=== PATIENT | female | born 1970 | race Two or more races ===

== ENCOUNTER 2024-11-27 12:41 | Inpatient (IN) | payer OTHER ==
[~2024-11-27] VITALS: Ht 170.2 cm; Wt 90.9 kg
--- NOTE | 2024-11-27 12:54 | ED.PDOC ---
History of Present Illness HPI Comments 51-year-old female with PMHx PE on Eliquis brought in by EMS presents with a chief complaint of palpitations and anxiety-like symptoms x 20 minutes prior to arrival. Patient was at [facility] visiting a friend when she states that she began to have sudden onset of dry mouth, numbness and tingling to all extremities, and hyperventilation. Patient states that those symptoms have subsided and now all she is feeling is palpitation-like feeling in her chest. Patient is unsure if she has a history of anxiety. Patient is on Eliquis for her PE. 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 Family History Family History: Reviewed,noncontributory to illness Social History Smoker: Non-Smoker Alcohol: Denies ETOH Use Drugs: Denies Drug Use Lives In: Home Constitutional: denies: chills, diaphoresis, fatigue, fever, malaise, sweats, weakness, others EENTM: denies: blurred vision, double vision, ear bleeding, ear discharge, ear drainage, ear pain, ear ringing, eye pain, eye redness, hearing loss, mouth pain, mouth swelling, nasal discharge, nose bleeding, nose congestion, nose pain, photophobia, tearing, throat pain, throat swelling, voice changes, others Respiratory: reports: others (HYPERVENTILATION); denies: cough, hemoptysis, orthopnea, SOB at rest, shortness of breath, SOB with excertion, stridor, wheezing Cardiovascular: reports: palpitations; denies: chest pain, dizzy spells, diaphoresis, Dyspnea on exertion, edema, irregular heart beat, left arm pain, lightheadedness, PND, syncope, others Gastrointestinal: denies: abdomen distended, abdominal pain, blood streaked bowels, constipated, diarrhea, dysphagia, difficulty swallowing, hematemesis, melena, nausea, poor appetite, poor fluid intake, rectal bleeding, rectal pain, vomiting, others Genitourinary: denies: abnormal vagina bleeding, burning, dyspareunia, dysuria, flank pain, frequency, hematuria, incontinence, pain, , vagina discharge, urgency, others Neurological: denies: dizziness, fainting, headache, left sided numbness, left sided weakness, numbness, paresthesia, pre-existing deficit, right sided numbness, right sided weakness, seizure, speech problems, tingling, tremors, weakness, others Musculoskeletal: denies: back pain, gout, joint pain, joint swelling, muscle pain, muscle stiffness, neck pain, others Integumetry: denies: bruises, change in color, change in hair/nails, dryness, laceration, lesions, lumps, rash, wounds, others Allergic/Immunocompromised: denies: Difficulty Healing, Frequent Infections, Hives, Itching, others Hematologic/Lymphatic: denies: anemia, blood clots, easy bleeding, easy bruising, swollen glands, others Endocrine: denies: excessive hunger, excessive sweating, excessive thirst, excessive urination, flushing, intolerance to cold, intolerance to heat, unexplained weight gain, unexplained weight loss, others Psychiatric: reports: anxiety; denies: bipolar disorder, depression, hopeless, panic disorder, schizophrenia, sleepless, suicidal, others All Other Systems: Reviewed and Negative Physical Exam General Appearance: Moderate Distress, Normal HEENT: Normal ENT Inspection, Pharynx Normal, TMs Normal Neck: Full Range of Motion, Non-Tender, Normal, Normal Inspection Respiratory: Chest Non-Tender, Lungs Clear, No Accessory Muscle Use, No Respiratory Distress, Normal Breath Sounds Cardiovascular: No Edema, No JVD, No Murmur, No Gallop, Normal Peripheral Pulses, Regular Rate/Rhythm Breast Exam: Deferred Gastrointestinal: No Organomegaly, Non Tender, No Pulsatile Mass, Normal Bowel Sounds, Soft Genitalia: Deferred Pelvic: Deferred Rectal: Deferred Extremities: No calf tenderness, Normal capillary refill, Normal inspection, Normal range of motion, Non-tender, No pedal edema Musculoskeletal : Apperance: Normal Neurologic: Alert, attendance officer II-XII nml as Tested, No Motor Deficits, Normal Affect, Normal Mood, No Sensory Deficits Cerebellar Function: NOT DONE Reflexes: NOT DONE Skin: Dry, Normal Color, Warm Peripheral Pulses: 3+ Radial (R), 3+ Radial (L) Lymphatic: No Adenopathy Was a procedure done? Was a procedure done?: No EKG EKG : Pulse Rate (adult): 79 Cardiac Rhythm: NSR Differential Dx Considerations may include: Anemia Electrolyte imbalance X-Ray, Labs, Meds, VS Vital Signs Date Time Temp Pulse Resp B/P (MAP) Pulse Ox O2 Delivery O2 Flow Rate FiO2 11/27/24 12:57 79 11/27/24 12:53 79 11/27/24 12:48 97.8 94 22 137/87 99 97.8 Lab Test 11/27/24 16:21 11/27/24 14:21 11/27/24 12:56 11/27/24 12:49 Range/Units Urine Color Colorless Yellow Urine Clarity Turbid H Clear Urine pH 7.5 5.0-9.0 Urine Specific [place] 1.007 1.001-1.035 Urine Protein Negative Negative Urine Ketones Negative Negative Urine Blood Normal Negative /uL Urine Nitrite Negative Negative Urine Bilirubin Negative Negative Urine Urobilinogen Normal Negative mg/dL Urine Leukocyte Esterase Negative Negative /uL Urine Glucose Normal Normal mg/dL Troponin I High Sensitivity < 3 L < 3 L </=34 ng/L White Blood Count 5.3 4.4-10.8 10^3/uL Red Blood Count 4.51 4.0-5.20 10^6/uL Hemoglobin 12.7 12.2-16.2 g/dL Hematocrit 38.6 36.0-46.0 % Mean Corpuscular Volume 85.6 80.0-100.0 fL Mean Corpuscular Hemoglobin 28.2 28.0-32.0 pg Mean Corpuscular Hemoglobin Concent 33.0 32.0-36.0 g/dL Red Cell Distribution Width 14.4 H 11.8-14.3 % Platelet Count 232 140-450 10^3/uL Mean Platelet Volume 8.2 6.9-10.8 fL Neutrophils (%) (Auto) 45.2 37.0-80.0 % Lymphocytes (%) (Auto) 44.9 10.0-50.0 % Monocytes (%) (Auto) 8.2 0.0-12.0 % Eosinophils (%) (Auto) 1.0 0.0-7.0 % Basophils (%) (Auto) 0.7 0.0-2.0 % Neutrophils # (Auto) 2.4 1.6-8.6 10 ^3/uL Lymphocytes # (Auto) 2.4 0.4-5.4 10 ^3/uL Monocytes # (Auto) 0.4 0-1.3 10 ^3/uL Eosinophils # (Auto) 0.1 0-0.8 10 ^3/uL Basophils # (Auto) 0 0-0.2 10 ^3/uL Nucleated Red Blood Cells 0.1 % Sodium Level 139 136-145 mmol/L Potassium Level 3.5 3.5-5.1 mmol/L Chloride Level 106 98-107 mmol/L Carbon Dioxide Level 20 20-31 mmol/L Anion Gap 13 5-15 Blood Urea Nitrogen 14 9-23 mg/dL Creatinine 1.14 H 0.550-1.02 mg/dL Glomerular Filtration Rate Calc 57 >90 mL/min BUN/Creatinine Ratio 12.3 10.0-20.0 Serum Glucose 197 H 74-106 mg/dL Calcium Level 9.2 8.7-10.4 mg/dL Urine Opiates Screen Pending Urine Fentanyl Screen Pending Urine Barbiturates Screen Pending Urine Phencyclidine Screen Pending Urine Amphetamines Screen Pending Urine Benzodiazepines Screen Pending Urine Cocaine Screen Pending Urine Cannabinoids Screen Pending Current Medications Medications (Trade) Dose Ordered Sig/Miriam Route Start Time Stop Time Status Last Admin Aspirin 325 mg ONCE ONCE PO 11/27/24 13:00 11/27/24 13:01 DC 11/27/24 14:05 Lorazepam (Ativan Inj) 1 mg ONCE ONCE IV 11/27/24 13:00 11/27/24 13:01 DC 11/27/24 14:05 Patient alert. Complaining of chest discomfort. Vitals stable. Answering questions. She is on Eliquis for possible clot. No leg swelling. EKG reviewed does not show any acute process. Explained to the patient. Continue monitoring. Time of 1ST Reevaluation: 13:16 Reevaluation 1ST: Unchanged Patient Education/Counseling: Diagnosis, Treatment, Need For Follow Up Family Education/Counseling: No Family Present SEPSIS Sepsis Screen Physician Orders Chest Portable (11/27/24 12:49) Vital Signs Date Time Temp Pulse Resp B/P (MAP) Pulse Ox O2 Delivery O2 Flow Rate FiO2 11/27/24 12:57 79 11/27/24 12:53 79 11/27/24 12:48 97.8 94 22 137/87 99 97.8 Laboratory Tests Test 11/27/24 12:56 White Blood Count 5.3 10^3/uL (4.4-10.8) Medications Medications Dose Ordered Sig/Miriam Route Start Time Stop Time Status Last Admin Dose Admin Aspirin 325 mg ONCE ONCE PO 11/27/24 13:00 11/27/24 13:01 DC 11/27/24 14:05 Lorazepam 1 mg ONCE ONCE IV 11/27/24 13:00 11/27/24 13:01 DC 11/27/24 14:05 Departure 1 Departure Time of Disposition: 12:57 Impression: Primary Impression: Chest pain of unknown etiology Disposition: ADMITTED INPATIENT Admit to: Med Surg Condition: Guarded Critical Care Note Critical Care Time?: No Stability Stability form required: No Heart Score Heart Score: Heart Score Response (Comments) Value History N/A 0 EKG N/A 0 Age N/A 0 Risk Factors N/A 0 Troponin N/A 0 Total 0 I personally scribed for AFTAB LIM MD ([email or web address]) on 11/27/24 at 12:53. Electronically submitted by Parrish Gonzales [email or web address]). AFTAB LIM MD Nov 27, 2024 12:53
--- NOTE | 2024-11-27 13:00 | ECG ---
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
[2024-11-27 13:06] LABS: Hematocrit 38.6 % (36.0-46.0); Hemoglobin 12.7 g/dL (12.2-16.2); Mean Corpuscular Hemoglobin 28.2 pg (28.0-32.0); Mean Corpuscular Volume 85.6 fL (80.0-100.0); Nucleated Red Blood Cells % 0.1 %
[2024-11-27 13:16] LABS: Chloride 106 mmol/L (98-107); Sodium 139 mmol/L (136-145)
[2024-11-27 13:17] LABS: Anion Gap 13 (5-15); Calcium 9.2 mg/dL (8.7-10.4); Carbon Dioxide 20 mmol/L (20-31)
[2024-11-27 13:22] LABS: BUN/Creatinine Ratio 12.3 (10.0-20.0); Blood Urea Nitrogen 14 mg/dL (9-23)
[2024-11-27 13:28] LABS: Glucose 197 mg/dL (74-106); Potassium 3.5 mmol/L (3.5-5.1)
--- NOTE | 2024-11-27 13:50 | DVH ---
INDICATION: sob TECHNIQUE: Frontal view of the chest. COMPARISON: None FINDINGS: . The heart and mediastinal contours are grossly unremarkable. There is no evidence of pleural disea se. The lungs are clear. The bony structures of the chest are intact without fracture. IMPRESSION: 1. No evidence of acute disease.
[2024-11-27] MEDS: LORazepam 2MG/ML-1ML VIAL IV ONE (14:05)
[2024-11-27] MEDS ORDERED: ACETAMINOPHEN 325 MG TAB PO PRN (17:00)
[2024-11-27] MEDS ORDERED: ALPRAZolam 0.5 MG TAB PO PRN (17:00)
[2024-11-27 17:04] LABS: Urine Protein, UAD Negative (Negative)
--- NOTE | 2024-11-27 17:09 | DVHHP2 ---
History of Present Illness Reason for Visit: Generalized weakness History of Present Illness This is a pleasant 51-year-old female with past medical history of PE on Eliquis brought in by EMS due to chief complaint of anxiety like symptoms associated with palpitation and shortness of breaths 20 minutes prior to arrival. The pa kortney states being diagnosed with PE about two years ago and had a follow-up imaging done which no longer having PE but continues to take Eliquis. The patient reports visiting a friend at [facility] when she suddenly having symptoms that started with dry mouth, numbness and tingling to all extremities and hyperventilation. The patient states that those symptoms have subsided and now all she is feeling is numbness to her fingers her legs along with her chest. The patient denies using illicit drugs, consumption of caffeinated/energy drinks and denies recent injury or trauma to chest. The patient is unsure if she has a history of anxiety, denies prior history of said symptoms. The patient and is concerned about her symptoms and would like to be further evaluated and treated. The patient will be admitted under hospitalist care to the medical-surgical unit. The patient denies fever, chills, dizziness, headache, abdominal pain, nausea, vomiting, diarrhea, constipation and other associated symptoms. The plan has been discussed with the patient and who was concerned in which all questions concerns have been addressed. Pulmonary: Pulmonary embolus Past Surgical History: None Family History: None Smoke: No ALCOHOL: none Drugs: None Lives: with Family Domestic Violence: Neg Review of Systems Constitutional: Yes: Weakness Respiratory: Shortness of breath Cardiovascular: Palpitations Musculoskeletal: other Neurological: Other (Anxiety) Other Numbness and tingling to upper and lower extremity Allergies: Coded Allergies: NO KNOWN ALLERGIES (Unverified , 11/27/24) Medications Current Medications Medications Dose Ordered Sig/Miriam Route Start Time Stop Time Status Last Admin Dose Admin Aspirin 81 mg DAILY PO 11/28/24 10:00 UNV Sodium Chloride 1,000 ml @ 100 mls/hr Q10H IV 11/27/24 17:00 UNV Acetaminophen 650 mg Q6HP PRN PO 11/27/24 17:00 UNV Exam Vital Signs Vital Signs Date Time Temp Pulse Resp B/P (MAP) Pulse Ox O2 Delivery O2 Flow Rate FiO2 11/27/24 12:57 79 11/27/24 12:48 97.8 22 137/87 99 97.8 General Appearance: Alert, Oriented X3, Cooperative, No acute distress HEENT: Atraumatic, PERRLA, Mucous membr. moist/pink Respiratory: Clear to auscultation, Normal air movement Cardiovascular: Normal S1, Normal S2, No murmurs Abdominal: Normal bowel sounds, Soft, No tenderness, No hepatospenomegaly, No masses Extremities: No clubbing, No cyanosis, No edema, Normal pulses, No tenderness/swelling Skin: No rashes, No breakdown Neuro: Normal gait, Normal speech, Strength at 5/5 X4 ext, Normal tone, Cranial nerves 3-12 NL Psych/Mental Status: Mental status NL, Mood NL Labs/Xrays Labs Test 11/27/24 16:21 11/27/24 14:21 11/27/24 12:56 Range/Units Troponin I High Sensitivity < 3 L </=34 ng/L White Blood Count 5.3 4.4-10.8 10^3/uL Red Blood Count 4.51 4.0-5.20 10^6/uL Hemoglobin 12.7 12.2-16.2 g/dL Hematocrit 38.6 36.0-46.0 % Mean Corpuscular Volume 85.6 80.0-100.0 fL Mean Corpuscular Hemoglobin 28.2 28.0-32.0 pg Mean Corpuscular Hemoglobin Concent 33.0 32.0-36.0 g/dL Red Cell Distribution Width 14.4 H 11.8-14.3 % Platelet Count 232 140-450 10^3/uL Mean Platelet Volume 8.2 6.9-10.8 fL Neutrophils (%) (Auto) 45.2 37.0-80.0 % Lymphocytes (%) (Auto) 44.9 10.0-50.0 % Monocytes (%) (Auto) 8.2 0.0-12.0 % Eosinophils (%) (Auto) 1.0 0.0-7.0 % Basophils (%) (Auto) 0.7 0.0-2.0 % Neutrophils # (Auto) 2.4 1.6-8.6 10 ^3/uL Lymphocytes # (Auto) 2.4 0.4-5.4 10 ^3/uL Monocytes # (Auto) 0.4 0-1.3 10 ^3/uL Eosinophils # (Auto) 0.1 0-0.8 10 ^3/uL Basophils # (Auto) 0 0-0.2 10 ^3/uL Nucleated Red Blood Cells 0.1 % Sodium Level 139 136-145 mmol/L Potassium Level 3.5 3.5-5.1 mmol/L Chloride Level 106 98-107 mmol/L Carbon Dioxide Level 20 20-31 mmol/L Anion Gap 13 5-15 Blood Urea Nitrogen 14 9-23 mg/dL Creatinine 1.14 H 0.550-1.02 mg/dL Glomerular Filtration Rate Calc 57 >90 mL/min BUN/Creatinine Ratio 12.3 10.0-20.0 Serum Glucose 197 H 74-106 mg/dL Calcium Level 9.2 8.7-10.4 mg/dL ORDERING PHYSICIAN: AFTAB LIM MD PROCEDURE(s): CXRP - CHEST PORTABLE REASON: sob ORDER NUMBER(s): [id number], ACCESSION NUMBER(s): [id number] INDICATION: sob TECHNIQUE: Frontal view of the chest. COMPARISON: None FINDINGS: . The heart and mediastinal contours are grossly unremarkable. There is no evidence of pleural disease. The lungs are clear. The bony structures of the chest are intact without fracture. IMPRESSION: 1. No evidence of acute disease. ATED BY: LAKEISHA ROOT MD DICTATED DATE/TIME: 11/27/241347 SIGNED BY: LAKEISHA ROOT MD SIGNED DATE/TIME: 11/27/241347 CC: SEPSIS Sepsis Screen Date sepsis recognized/suspect: Nov 27, 2024 Time Sepsis recognized/suspect: 1248 Recent Procedure: No On Antibiotic Therapy: No Respiratory Rate >20: No Heart Rate >90: Yes Temp<36 C (96.8 F) or >38.3 C: No SBP <90 or MAP <65 mmHG: No New Acute Mental Status Change: No Is the patient on CPAP, BIPAP,: No Physician Orders Chest Portable (11/27/24 12:49) Urinalysis W/Out Microscopic (11/27/24 16:21) Aspirin Tablet (11/28/24 10:00) Drug Screen (11/27/24 16:57) Admit (11/27/24 16:57) 2 Gm Sodium Diet (11/27/24 Dinner) 0.9% Ns 1000 Ml (11/27/24 17:00) Complete Blood Count (11/28/24 04:00) Comprehensive Metabolic Panel (11/28/24 04:00) Pt Request For Service (11/27/24 16:57) Echo 2d Mode Cardiac Dop (11/27/24 16:57) Carotid Duplx W Color Dop (11/27/24 16:57) Condition: Fair (11/27/24 16:57) Acetaminophen Tablet (Tylenol Tablet) (11/27/24 17:00) Bedrest With Bathroom Privileg (11/27/24 16:57) Vital Signs Date Time Temp Pulse Resp B/P (MAP) Pulse Ox O2 Delivery O2 Flow Rate FiO2 11/27/24 12:57 79 11/27/24 12:53 79 11/27/24 12:48 97.8 94 22 137/87 99 97.8 Laboratory Tests Test 11/27/24 12:56 White Blood Count 5.3 10^3/uL (4.4-10.8) Medications Medications Dose Ordered Sig/Miriam Route Start Time Stop Time Status Last Admin Dose Admin Aspirin 325 mg ONCE ONCE PO 11/27/24 13:00 11/27/24 13:01 DC 11/27/24 14:05 325 MG Lorazepam 1 mg ONCE ONCE IV 11/27/24 13:00 11/27/24 13:01 DC 11/27/24 14:05 1 MG Assessment/Plan Assessment/Plan Generalized weakness rule out TIA--patient brought in by EMS with chief complaint of anxiety like symptoms associated with palpitation, numbness and tingling to all extremities and dry mouth times 20 minutes prior to arrival Patient was visiting friend today when symptoms suddenly occurred No prior history of anxiety attack Denies illicit drug use, injury/trauma to chest, consumption of caffeinate d/energy drink Alert oriented, denies shortness of breath and chest pain during evaluation just numbness and tingling to upper and lower extremity Admit to med surge unit Reviewed CBC which is normal Reviewed BMP which is normal Cardiac enzyme negative x2 Urinalysis is negative Reviewed chest x-ray which is normal Magnesium level pending UDS pending Carotid Doppler pending Echocardiogram pending Xanax 0.5 mg b.i.d. if needed Consider transmission tester if further evaluation and recommendation are needed Consider neurologist if further evaluation and recommendation or needed History of PE Diagnosed two years ago recently cleared But remains taking Eliquis 5 mg b.i.d. Reconcile home medication Labs in a.m. DVT prophylaxis patient currently on Eliquis PUD prophylaxis not indicated no history of GERD Discussed plan of care with the patient and spouse in which all questions concerns have been addressed Plan discussed with: Patient, Spouse My Orders Orders - JENNIFER OTT Procedure Category Date Status Time Aspirin Tablet PHA 11/28/24 Transmitted 10:00 Drug Screen LAB 11/27/24 Transmitted 16:57 Admit ADMIT 11/27/24 Transmitted 16:57 2 Gm Sodium Diet DIET 11/27/24 Transmitted Dinner 0.9% Ns 1000 Ml PHA 11/27/24 Transmitted 17:00 Complete Blood Count LAB 11/28/24 Verified 04:00 Comprehensive LAB 11/28/24 Verified Metabolic Panel 04:00 Pt Request For Service PT 11/27/24 Transmitted 16:57 Echo 2d Mode Cardiac US 11/27/24 Transmitted DOP 16:57 Carotid Duplx W Color US 11/27/24 Transmitted DOP 16:57 Condition: Fair DONNA 11/27/24 Transmitted 16:57 Acetaminophen Tablet PHA 11/27/24 Transmitted (Tylenol Tablet) 17:00 Bedrest With Bathroom DONNA 11/27/24 Transmitted Privileg 16:57 Date of Service: Nov 27, 2024 Billing Provider: JENNIFER OTT Common Visit Codes: [id number] INP/OBS CARE (HIGH) JENNIFER OTT Nov 27, 2024 17:09
[2024-11-27 17:23] LABS: Amphetamine Screen, Urine Neg (NEGATIVE)
[2024-11-27 17:33] LABS: Barbiturate Scree,Urine Neg (NEGATIVE); Benzodiazephine Screen, Urine Neg (NEGATIVE); Cannabinoid Screen, Urine Neg (NEGATIVE); Cocaine Screen, Urine Neg (NEGATIVE); Opiate Scree,Urine Neg (NEGATIVE); Phencyclidine Screen, Urine Neg (NEGATIVE)
[2024-11-27] MEDS: SODIUM CHLORIDE 0.9% 1,000 ML IV SCH (17:58)
--- NOTE | 2024-11-27 18:02 | DVH ---
Carotid Duplex Date: 11/27/2024 05:40 PM Clinical History: Rule out TIA Comparison: None Technique: Duplex Doppler evaluation of the extracranial carotid and vertebral arteries including col or Doppler and spectral/pulsed waveform analysis was performed. Findings: RIGHT SIDE: The peak systolic velocities are 44 cm/s in the distal CCA and 75 cm/s in the proximal ICA.The ICA/CC A ratio is 1.7. The external carotid artery is patent with peak systolic velocity of 46 cm/s proximally. There is appropriate antegrade flow in the right vertebral artery. LEFT SIDE: The peak systolic velocities are 63 cm/s in the distal CCA and 72 cm/s in the proximal ICA. The ICA /CCA ratio is 1.1. The external carotid artery is patent with peak systolic velocity of 65 cm/s proximally. There is appropriate antegrade flow in the left vertebral artery. IMPRESSION: 1. No hemodynamically significant stenosis noted in the right carotid system. 2. No hemodynamically significant stenosis noted in the left carotid system. 3. Reference: Radiology 2003; 229:340-346
[2024-11-27 23:41] VITALS: BP 125/88; PULSE 54; RESP 14; TEMP 97.5; O2SAT 100
== END 2024-11-28 00:36 | disposition left against medical advice (07) | DRG 69 ==
LOC: EDBD 12:41 → ER 12:41 → OVERFLOW 16:57
PROVIDERS: ADMIT Nurse Practitioner Family; ATTEND Nurse Practitioner Family
DX: G45.9 Transient cerebral ischemic attack, unspecified (principal); F41.9 Anxiety disorder, unspecified; Z53.29 Procedure and treatment not carried out because of patient's decision for other reasons; Z79.01 Long term (current) use of anticoagulants; Z79.82 Long term (current) use of aspirin; Z86.711 Personal history of pulmonary embolism
CPT/HCPCS: 36415; 71045; 80048; 80307; 81003; 83735; 84484; 85025; 93005; 93886; 96361; 96374; G0378